=== PATIENT | female | born 1950 | race Caucasian/White ===

== ENCOUNTER → 2018-05-17 | Outpatient (CLI) | payer MEDICARE ==
[~2018-05-17] MED LIST: CIPROFLOXACIN500 MG PO; CLONAZEPAM1 MG PO; LOMOTIL TABLET1 EACH PO; PANTOPRAZOLE SO40 MG PO; PRAVASTATIN SOD40 MG PO; ULTRAM 50MG50 MG PO; ZOFRAN4 MG PO
--- NOTE | 2018-05-17 11:18 | Diagnostic Imaging Report ---
PROCEDURE:US RETROPERITONEAL ( KIDNEY ). COMPARISON:None. INDICATIONS:LUQ Pain TECHNIQUE: Mascorro-scale and color sonographic images of the bilateral kidneys and bladder where obtained in transverse and longitudinal planes. FINDINGS: RIGHT KIDNEY: Status post right total nephrectomy. LEFT KIDNEY: 12.4 cm, cortex 2.3 cm Cysts: None Solid masses: None Stones: None Hydronephrosis: No hydronephrosis. Echogenicity: Normal Bladder: The bladder is partially decompressed. Left urinary jet is seen. CONCLUSION: Status post right total nephrectomy. Left renal ultrasound is unremarkable without evidence of stone. Dictated by: JAYME PHILIPPE M.D. on 05/17/2018 at 8:31 Electronically approved by: JAYME PHILIPPE M.D. on 05/17/2018 at 8:31
== END ==
LOC: US 07:13
PROVIDERS: ATTEND Family Medicine
DX: R10.12 Left upper quadrant pain (principal)
CPT/HCPCS: 76770

== ENCOUNTER → 2018-07-18 | Outpatient (CLI) | payer MEDICARE ==
--- NOTE | 2018-08-03 09:04 | Diagnostic Imaging Report ---
#[id number] - MGSCRBIL #BILATERAL DIGITAL SCREENING MAMMOGRAM WITH CAD: 07/18/2018 CLINICAL: Routine screening. Comparison is made to exams dated: 08/16/2013 mammogram and 07/11/2013 mammogram - [facility]. Current study contains 4 films. The tissue of both breasts is predominantly fatty. Current study was also evaluated with a Computer Aided Detection (CAD) system. There are benign calcifications in both breasts. There also are benign intramammary nodes in both breasts. Additionally there is a biopsy clip in the left breast. No significant masses, calcifications, or other findings are seen in either breast. There has been no significant interval change. IMPRESSION: BENIGN There is no mammographic evidence of malignancy. A 1 year screening mammogram is recommended. The patient will be notified by letter of the results. Mango selby/daysi:08/02/2018 14:23:44 Workers Compensation Claims Assistant: Nella SHUKLA(R)(Sandhya), [facility] letter sent: Compared to Prior B9 Mammogram BI-RADS: 2 Benign
== END ==
LOC: MAMMO 12:13
PROVIDERS: ATTEND Family Medicine
DX: Z12.31 Encounter for screening mammogram for malignant neoplasm of breast (principal)
CPT/HCPCS: 77067

== ENCOUNTER → 2021-05-13 | Outpatient (CLI) | payer MEDICARE | LOC: MAMMO 10:38 | PROVIDERS: ATTEND Family Medicine | DX: Z12.31 Encounter for screening mammogram for malignant neoplasm of breast (principal); N95.1 Menopausal and female climacteric states | CPT/HCPCS: 77067; 77080 ==